=== PATIENT | male | born 1955 ===

== ENCOUNTER → 2017-12-31 21:04 | Outpatient (REF) | payer OTHER, SELFPAY ==
[2018-01-01 01:48] LABS: Free T3, Triiodothyronine Free 3.01 pg/mL (2.77-5.27); Free T4, Direct Thyroxine 1.33 ng/dL (0.78-2.19)
[2018-01-01 02:02] LABS: Thyroid Stimulating Hormone 1.01 uIU/mL (0.47-4.68)
[2018-01-08 19:32] LABS: Triiodothyronine T3 Reverse 19 ng/dL (8-25)
== END ==
LOC: LAB 21:04
PROVIDERS: Visit Provider Family Medicine
DX: E03.9 Hypothyroidism, unspecified (principal); Z13.89 Encounter for screening for other disorder; L57.0 Actinic keratosis; L20.84 Intrinsic (allergic) eczema
CPT/HCPCS: 83519; 84439; 84443; 84481; 84482